=== PATIENT | female | born 1995 | race Caucasian/White ===

== ENCOUNTER 2018-10-02 19:51 | Emergency (ER) | payer OTHER ==
[~2018-10-02] VITALS: Wt 74.6 kg
[2018-10-02] MEDS ORDERED: ACETAMINOPHEN 325 MG TAB PO STA (21:04)
[2018-10-02] MEDS ORDERED: CEPH-443 PO (23:06)
[2018-10-02] MEDS ORDERED: ACET325T33 PO (23:06)
[2018-10-02 23:17] VITALS: BP 141/75; PULSE 94; RESP 20
--- NOTE | 2018-10-03 03:55 | ERD ---
ER Documentation Chief Complaint Chief Complaint low ab pain x 2 days; (+) home test but w/ IUD HPI 23-year-old female with no significant past medical history presents to the emergency department complaining of suprapubic cramping for the past 2 days. Her last menstrual cycle was 08/09/2018. She is G3, . Symptoms are constant, rated 6/10 in severity. She had multiple positive at home tests at home. She denies any other symptoms currently. ROS All systems reviewed and are negative except as per history of present illness. Medications Home Meds Active Scripts Acetaminophen* (Tylenol*) 325 Mg Tablet, 2 TAB PO Q6 PRN for PAIN AND OR ELEVATED TEMP, #20 TAB Prov:CORA RICHMOND PA-C 10/02/18 Cephalexin* (Keflex*) 500 Mg Capsule, 500 MG PO TID for 7 Days, CAP Prov:CORA RICHMOND PA-C 10/02/18 Allergies Allergies: Coded Allergies: No Known Drug Allergies (Verified Allergy, Unknown, 06/16/14) PMhx/Soc Medical and Surgical Hx: pt denies Medical Hx History of Surgery: No Anesthesia Reaction: No Hx Neurological Disorder: No Hx Respiratory Disorders: No Hx Cardiac Disorders: No Hx Psychiatric Problems: No Hx Miscellaneous Medical Probl: No Hx Alcohol Use: No Hx Substance Use: No Hx Tobacco Use: No Smoking Status: Never smoker FmHx Family History: No diabetes Physical Exam Vitals Vital Signs Date Temp Pulse Resp B/P (MAP) Pulse Ox O2 O2 Flow FiO2 Time Delivery Rate 10/02/18 98.1 94 20 141/75 100 Room Air 23:17 (97) 10/02/18 98.8 107 18 147/85 98 20:06 (105) Physical Exam Const: No acute distress Head: Atraumatic Eyes: Normal Conjunctiva ENT: Normal External Ears, Nose and Mouth. Neck: Full range of motion. No meningismus. Resp: Clear to auscultation bilaterally Cardio: Regular rate and rhythm, no murmurs Abd: Soft, non tender, non distended. Normal bowel sounds. No rebound tenderness or guarding. No McBurney's point tenderness. Mild bilateral pelvic tenderness to palpation. Skin: No petechiae or rashes Back: No midline or flank tenderness Ext: No cyanosis, or edema Neur: Awake and alert Psych: Normal Mood and Affect Result Diagram: 10/02/18210910/02/182109 Results 24 hrs Laboratory Tests Test 10/02/18 21:10 10/02/18 21:11 10/02/18 21:15 10/02/18 21:16 White Blood 9.8 10^3/ul Count Red Blood Count 4.78 10^6/ul Hemoglobin 13.5 g/dl Hematocrit 39.8 % Mean Corpuscular 83.3 fl Volume Mean Corpuscular 28.2 pg Hemoglobin Mean Corpuscular 33.9 g/dl Hemoglobin Johana nt Red Cell 13.3 % Distribution Width Platelet Count 294 10^3/UL Mean Platelet 10.8 fl Volume Immature 0.300 % Granulocytes % Neutrophils % 73.5 % Lymphocytes % 16.7 % Monocytes % 7.5 % Eosinophils % 1.5 % Basophils % 0.5 % Nucleated Red 0.0 /100WBC Blood Cells % Immature 0.030 10^3/ul Granulocytes # Neutrophils # 7.2 10^3/ul Lymphocytes # 1.6 10^3/ul Monocytes # 0.7 10^3/ul Eosinophils # 0.2 10^3/ul Basophils # 0.1 10^3/ul Nucleated Red 0.0 10^3/ul Blood Cells # Sodium Level 139 mmol/L Potassium Level 3.7 mmol/L Chloride Level 105 mmol/L Carbon Dioxide 22 mmol/L Level Anion Gap 12 Blood Urea 14 mg/dl Nitrogen Creatinine 0.52 mg/dl Est Glomerular > 60 mL/min Filtrat Rate mL/min Glucose Level 109 mg/dl Calcium Level 9.7 mg/dl Total Bilirubin 0.2 mg/dl Direct Bilirubin 0.00 mg/dl Indirect 0.2 mg/dl Bilirubin Aspartate Amino 36 IU/L Transf (AST/SGOT ) Alanine 38 IU/L Aminotransferase (ALT/SGPT) Alkaline 99 IU/L Phosphatase Total Protein 8.7 g/dl Albumin 4.7 g/dl Globulin 4.00 g/dl Albumin/Globulin 1.17 Ratio Beta HCG, 80018.0 mIU/ml Quantitative Urine Color YELLOW Urine Clarity CLOUDY Urine pH 5.0 Urine Specific 1.034 [place] Urine Ketones NEGATIVE mg/dL Urine Nitrite NEGATIVE mg/dL Urine Bilirubin NEGATIVE mg/dL Urine NEGATIVE mg/dL Urobilinogen Urine Leukocyte 2+ Anton/ul Esterase Urine 5 /HPF Microscopic RBC Urine 15 /HPF Microscopic WBC Urine Squamous MODERATE /HPF Epithelial Cells Urine Bacteria FEW /HPF Urine Mucus FEW /HPF Urine Hemoglobin NEGATIVE mg/dL Urine Glucose NEGATIVE mg/dL Urine Total NEGATIVE mg/dl Protein POC Beta HCG, POSITIVE Qualitative Bedside Urine pH 5.5 (LAB) Bedside Urine 1+ Protein (LAB) Bedside Urine Negative Glucose (UA) Bedside Urine Trace Ketones (LAB) Bedside Urine Negative Blood Bedside Urine Negative Nitrite (LAB) Bedside Urine Trace Leukocyte Estera se (L Current Medications Medications Dose Sig/Mary Start Time Status Last (Trade) Ordered Route PRN Stop Time Admin Dose Reason Admin 650 mg ONCE STAT 10/02/18 DC 10/02/18 Acetaminophen PO 21:04 21:18 (Tylenol 10/02/18 21:06 Tab) [place] [address] Radiology Main Line: [phone] DIAGNOSTIC IMAGING REPORT Patient: ANDREW LUTZ : 1995 Age: 23 Sex: F MR #: [id number] DOS: 10/02/182103 Ordering MD: CORA RICHMOND PA-C Location: [facility] Room/Bed: PROCEDURE: OB Ultrasound. CLINICAL INDICATION: Positive test. Vaginal bleeding. The patient states she has an IUD. TECHNIQUE: Ultrasound of the pelvis was performed with transabdominal and transvaginal sonography in the axial and sagittal planes. COMPARISON: No prior study is available for comparison. FINDINGS: There is a single intrauterine gestational sac. Yolk sac is present. pole is visualized. There is heart motion. heart rate is 112 beats per minute. Peavine-rump length is 0.49 cm. Mean sac diameter is 1.59 cm. There is a subchorionic hemorrhage measuring up to 3.3 cm. Menstrual age by ultrasound dates is 6 weeks 2 days. This indicates an expected date of delivery of 05/26/2019. The right ovary appears normal measuring 3.6 x 1.5 x 1.4 cm. The left ovary appears normal measuring 3.1 x 1.8 x 2.1 cm. Color Doppler and pulsed Doppler sonography demonstrate normal flow to the ovaries. There is no other pelvic mass or free fluid. IMPRESSION: 1. Single live intrauterine gestation of 6 weeks 2 days menstrual age by ultrasound dates. 2. Expected date of delivery is 05/26/2019. 3. IUD not visualized. 4. Subchorionic hemorrhage measuring 3.3 cm. 5. Otherwise unremarkable study.. RPTAT: QQ .Burak Jensen MD, MD Date Time Electronically viewed and signed by .Burak Jensen MD, on 10/02/2018 22:18 .R/ CC: CORA RICHMOND PA-C [id number] Procedures/MDM 23-year-old female presents to the emergency department complaining of pelvic pain during . Urinalysis showed evidence of urinary tract infection without evidence of pyelonephritis, sepsis, acute surgical abdomen, tubo-ovarian abscess, ectopic , or other emergencies. Ultrasound revealed live intrauterine with positive heart tones. Beta hCG was consistent with term of . The patient was stable and appropriate for discharge and further outpatient management with a prescription for Keflex and Tylenol. Patient was advised to have close follow-up with [facility] physician and return to the department immediately for any new or worsening or concerning symptoms. She understands and agrees with the plan. Departure Diagnosis: Primary Impression: Pelvic pain affecting Additional Impression: UTI (urinary tract infection) Condition: Fair Patient Instructions: Understanding Urinary Tract Infections (UTIs) Referrals: [facility] [address] [facility] [address] [place], [place] [id number] [address]ABUSLEME MAN [address] [place] [address] [address] [place] [address] [place] [id number] GERARD FERNANDEZ [address] [facility], [address] [address] [address] [address] [facility], [place] [id number] [facility] [address] [place], [place] [address] [address] [facility] [address] [address] NOR[address] [facility] [address] [address] ALVAREZ, CHRISTINE [address] [facility]. [address], [facility] [address] [address] OJEDA, [facility] [address] [place], [place] [phone] Additional Instructions: SPECIALIST: YOU HAVE A MEDICAL CONDITION WHICH REQUIRES YOU TO SEE A SPE CIALIST WITHIN THE NEXT 1-2 DAYS. PLEASE FOLLOW UP WITH YOUR PRIMARY PHYSICIAN FOR REFFERAL.IF YOU DO NOT HAVE A PRIMARY CARE PHYSICIAN AND/OR YOU CAN NOT AFFORD TO SEE A PHYSICIAN THE FOLLOWING RESOURCES HAVE BEEN SUPPLIED TO YOU. IT IS YOUR RESPONSIBILITY TO BE SEEN BY THE SPECIALIST: CORA LEDESMA PA-C Oct 03, 2018 03:55
== END 2018-10-02 23:19 | disposition home or self-care (01) ==
LOC: FTE 19:51
DX: O26.891 Other specified pregnancy related conditions, first trimester (principal); R10.2 Pelvic and perineal pain; O23.41 Unspecified infection of urinary tract in pregnancy, first trimester; Z3A.01 Less than 8 weeks gestation of pregnancy
CPT/HCPCS: 36415; 76801; 76817; 80053; 81001; 81025; 84702; 85025; 86900; 86901; Z7502; Z7610; 81003

== ENCOUNTER 2018-10-05 23:36 | Emergency (ER) | payer OTHER ==
[~2018-10-05] VITALS: Ht 149.9 cm; Wt 74.7 kg
[~2018-10-05 23:36] MED LIST: ACET325T33 PO; CEPH-443 PO
[2018-10-05 23:40] VITALS: Ht 149.9 cm; Wt 74.7 kg
[2018-10-06] MEDS ORDERED: CEPH-443 PO (02:11)
[2018-10-06] MEDS ORDERED: ACET-141 PO (02:11)
[2018-10-06] MEDS ORDERED: ACETAMINOPHEN 500 MG TAB PO STA (02:14)
[2018-10-06] MEDS ORDERED: CEPHALEXIN 500 MG CAP PO ONE (02:30)
[2018-10-06 02:38] VITALS: BP 133/76; PULSE 72; RESP 16
--- NOTE | 2018-10-06 17:16 | ERD ---
ER Documentation Chief Complaint Chief Complaint brownish vaginal discharge since 1999. states 6 weeks , c/o abd alba HPI History of Present Illness: 23-year-old female who denies a past medical history coming in today due to complaints of brown, clumpy vaginal discharge that started at 8 PM. Patient reports being approximately 6 weeks . Patient reports her abdominal pain rating 6/10. Patient denies bleeding consistent with a menstrual cycle or clots. Patient denies dysuria. At home pharmacological/nonpharmacological treatment for symptoms: Denies Denies social concerns; Denies recent foreign travel ROS All systems reviewed and are negative except as per history of present illness. Medications Home Meds Active Scripts Acetaminophen* (Acetaminophen*) 500 MG Extra Strength Tablet, 1000 MG PO Q6H PRN for PAIN AND OR ELEVATED TEMP, #30 TAB Prov:GIUSEPPE RESTREPO NP 10/06/18 Cephalexin* (Keflex*) 500 Mg Capsule, 500 MG PO TID for URINE INFECTION for 7 Days, CAP Prov:GIUSEPPE RESTREPO V TRANSFER CAR OPERATOR 10/06/18 Acetaminophen* (Tylenol*) 325 Mg Tablet, 2 TAB PO Q6 PRN for PAIN AND OR ELEVATED TEMP, #20 TAB Prov:CORA RICHMOND PA-C 10/02/18 Cephalexin* (Keflex*) 500 Mg Capsule, 500 MG PO TID for 7 Days, CAP Prov:CORA RICHMOND PA-C 10/02/18 Allergies Allergies: Coded Allergies: No Known Drug Allergies (Verified Allergy, Unknown, 06/16/14) PMhx/Soc Medical and Surgical Hx: pt denies Medical Hx, pt denies Surgical Hx History of Surgery: No Anesthesia Reaction: No Hx Neurological Disorder: No Hx Respiratory Disorders: No Hx Cardiac Disorders: No Hx Psychiatric Problems: No Hx Miscellaneous Medical Probl: No Hx Alcohol Use: No Hx Substance Use: No Hx Tobacco Use: No Smoking Status: Never smoker FmHx Family History: No diabetes, No coronary disease Physical Exam Vitals Vital Signs Date Temp Pulse Resp B/P (MAP) Pulse Ox O2 O2 Flow FiO2 Time Delivery Rate 10/06/18 98.3 72 16 133/76 98 Room Air 02:38 (95) 10/05/18 99.0 84 18 138/76 98 23:40 (96) Physical Exam Const: No acute distress, afebrile Head: Atraumatic Eyes: Normal Conjunctiva ENT: Normal External Ears, Nose and Mouth. Neck: Full range of motion. No meningismus. Resp: Clear to auscultation bilaterally Cardio: Regular rate and rhythm, no murmurs Abd: Soft, lower quadrant tenderness, non distended. No guarding, no masses, no rigidity Skin: No petechiae or rashes Back: No midline or flank tenderness Ext: No cyanosis, or edema Neur: Awake and alert x3, speaking in clear sentences, no focal deficits or facial asymmetry Psych: Normal Mood and Affect Result Diagram: 10/05/18 6188 Results 24 hrs Laboratory Tests Test 10/05/18 23:59 White Blood Count 9.0 10^3/ul Red Blood Count 4.30 10^6/ul Hemoglobin 12.4 g/dl Hematocrit 36.0 % Mean Corpuscular Volume 83.7 fl Mean Corpuscular Hemoglobin 28.8 pg Mean Corpuscular Hemoglobin Concent 34.4 g/dl Red Cell Distribution Width 13.2 % Platelet Count 269 10^3/UL Mean Platelet Volume 11.0 fl Immature Granulocytes % 0.200 % Neutrophils % 68.1 % Lymphocytes % 22.3 % Monocytes % 7.0 % Eosinophils % 2.0 % Basophils % 0.4 % Nucleated Red Blood Cells % 0.0 /100WBC Immature Granulocytes # 0.020 10^3/ul Neutrophils # 6.1 10^3/ul Lymphocytes # 2.0 10^3/ul Monocytes # 0.6 10^3/ul Eosinophils # 0.2 10^3/ul Basophils # 0.0 10^3/ul Nucleated Red Blood Cells # 0.0 10^3/ul Urine Color YELLOW Urine Clarity CLOUDY Urine pH 5.0 Urine Specific [place] 1.031 Urine Ketones TRACE mg/dL Urine Nitrite NEGATIVE mg/dL Urine Bilirubin NEGATIVE mg/dL Urine Urobilinogen 1+ mg/dL Urine Leukocyte Esterase 1+ Anton/ul Urine Microscopic RBC 17 /HPF Urine Microscopic WBC 20 /HPF Urine Squamous Epithelial Cells FEW /HPF Urine Bacteria FEW /HPF Urine Mucus MANY /HPF Urine Hemoglobin 3+ mg/dL Urine Glucose NEGATIVE mg/dL Urine Total Protein 1+ mg/dl Beta HCG, Quantitative 85497.0 mIU/ml Current Medications Medications Dose Sig/Mary Start Time Status Last (Trade) Ordered Route PRN Stop Time Admin Dose Reason Admin Cephalexin 500 mg ONCE ONCE 10/06/18 DC 10/06/18 (Keflex) PO 02:30 02:34 10/06/18 02:31 1,000 mg ONCE STAT 10/06/18 DC 10/06/18 Acetaminophen PO 02:14 02:34 (Tylenol 10/06/18 02:15 Tab) Procedures/MDM ED COURSE: ED course includes a thorough examination and history. The patient was stable throughout ED course. I kept the patient and/or family informed of laboratory and diagnostic imaging results throughout the ED course. LABS: CBC: no e/o of systemic infection [place] [address] Urinalysis positive for trace ketones, 1+ leukocyte Estrace, 17 RBCs, 20 WBCs, few bacteria, 3+ hemoglobin, 1.031 specific gravity MEDICATIONS GIVEN IN ER: Acetaminophen, cephalexin patient tolerated medication well with no adverse reactions. DIAGNOSTIC IMAGING: Read by radiologist. IMPRESSION: 1. Single live intrauterine with an estimated gestational age of 6 weeks 4 days, the estimated date of delivery 05/28/2019. 2. Previously seen subchorionic hemorrhage has decreased from 3.3 cm to approximately 2.4 cm but there has been development of a second smaller subchorionic hemorrhage in the fundal region measuring 1.1 cm. 3. Corpus luteum cyst of the left ovary again incidentally noted. Physician Sandra Date Time Electronically viewed and signed by Physician Sandra on 10/06/2018 01:03 PROCEDURES: None. MEDICAL DECISION MAKING: Low suspicion for life-threatening medical emergency. Low suspicion for acute abdominal emergency. Low suspicion for infectious process that requires IV/IM antibiotics. Otherwise healthy patient presenting with constellation of symptoms likely representing vaginal bleeding during , urinary tract infection, threatened miscarriage, subchorionic hemorrhages as characterized by history, physical exam findings, lab findings, imaging findings. Patient reassessment @ 0208: Results discussed. Patient hemodynamically stable. No respiratory distress, otherwise relatively well appearing and nontoxic. Disposition given. Patient educated on diagnoses, prescriptions, follow-up care, return precautions. Strict return precautions given for worsening condition; questions answered discharge. Patient verbalizes understanding of discharge instructions. PRESCRIPTIONS FOR HOME: Acetaminophen, cephalexin DISPOSITION: DISCHARGE At this time, patient is stable for discharge and outpatient management. I have instructed the patient to follow-up with his/her primary care physician in 1-2 days. I have discussed with the patient the possibility of needing to see a specialist for further workup and imaging studies if symptoms persist. I have instructed the patient to promptly return to the ER for any new or worsening symptoms including increased pain, fever, nausea, vomiting, weakness or LOC. The patient and/or family expressed understanding of and agreement with this plan. All questions were answered. Home care instructions were provided. DISCLAIMER: Inadvertent spelling and grammatical errors are likely due to EHR/dictation software use and do not reflect on the overall quality of patient care. Also, please note that the electronic time recorded on this note does not necessarily reflect the actual time of the patient encounter. Departure Diagnosis: Primary Impression: Urinary tract infection Additional Impressions: Subchorionic hematoma in first trimester Vaginal bleeding in patient at less than 20 weeks ges... Miscarriage, threatened, early Condition: Stable Patient Instructions: Understanding Urinary Tract Infections (UTIs), Bleeding During Early , Possible Miscarriage (Threatened ) Referrals: [facility] YOU HAVE RECEIVED A MEDICAL SCREENING EXAM AND THE RESULTS INDICATE THAT YOU DO NOT HAVE A CONDITION THAT REQUIRES URGENT TREATMENT IN THE EMERGENCY DEPARTMENT. FURTHER EVALUATION AND TREATMENT OF YOUR CONDITION CAN WAIT UNTIL YOU ARE SEEN IN YOUR DOCTORS OFFICE WITHIN THE NEXT 1-2 DAYS. IT IS YOUR RESPONSIBILITY TO MAKE AN APPOINTMENT FOR FOLOW-UP CARE. IF YOU HAVE A PRIMARY DOCTOR --you should call your primary doctor and schedule an appointment IF YOU DO NOT HAVE A PRIMARY DOCTOR YOU CAN CALL OUR PHYSICIAN REFERRAL HOTLINE AT IF YOU CAN NOT AFFORD TO SEE A PHYSICIAN YOU CAN CHOSE FROM THE FOLLOWING [facility] [address] [facility] [address] [facility] [address] [facility] [address] [facility] [address] [facility]. [facility]. [address] [facility]. [facility] YOU HAVE RECEIVED A MEDICAL SCREENING EXAM AND THE RESULTS INDICATE THAT YOU DO NOT HAVE A CONDITION THAT REQUIRES URGENT TREATMENT IN THE EMERGENCY DEPARTMENT. FURTHER EVALUATION AND TREATMENT OF YOUR CONDITION CAN WAIT UNTIL YOU ARE SEEN IN YOUR DOCTORS OFFICE WITHIN THE NEXT 1-2 DAYS. IT IS YOUR RESPONSIBILITY TO MAKE AN APPOINTMENT FOR FOLOW-UP CARE. IF YOU HAVE A PRIMARY DOCTOR --you should call your primary doctor and schedule and appointment IF YOU DO NOT HAVE A PRIMARY DOCTOR YOU CAN CALL OUR PHYSICIAN REFERRAL HOTLINE AT . IF YOU CAN NOT AFFORD TO SEE A PHYSICIAN YOU CAN CHOSE FROM THE FOLLOWING [facility] INSTITUTIONS: [facility] [address] [place] [address] [facility] [address] [place] [address] [facility] [address] [place] [address] BAND [employer] [place] [address] [facility] [address] [place] [address] OFFICE FAX , [facility] [address] [place], [place] [id number] [facility] [address] [place] [address] GERARD FERNANDEZ [address] [facility], [address] [address] [address] [address] [place] [address] [facility] [address] [place] [address] [facility] [address] - NORMA LEONE [address], [facility] [address] [address] ALVAREZ, CHRISTINE [address] [facility]. [address], [place] [address] [address] O[address]EDA, [facility] [address] [place] [address] Additional Instructions: Thank you very much for allowing us to participate in your care. Your health and safety is our top priority at [facility]. It is important to read all discharge instructions and education provided in your discharge packet. *Call your BAND RIPSAW OPERATOR on Sunday for follow-up appointment for next week for further evaluation and testing including possible blood work and/or ultrasound* Call your primary care doctor TOMORROW for an appointment during the next 2-4 days and bring all the information and medications prescribed. Have prescriptions filled and follow precisely the directions on the label. -Cephalexin is an antibiotic; take this medication every day as listed on your prescription. You must complete the entire course of treatment that is listed on your prescription this is very important because it takes a certain number of days to kill the bacteria that is causing the infection. --Acetaminophen as a medication for pain and/or fever. Take this medication as needed for mild to moderate pain. This medication will not cause drowsiness. This pain medication is safe during . If the symptoms get worse and your provider is unavailable, return to the Emergency Department immediately. *Signs of hemorrhage include soaking 1 pad (KOTEX) per hour; this is a life-threatening medical emergency and you need imme diate evaluation.* GIUSEPPE RESTREPO NP Oct 06, 2018 17:16
== END 2018-10-06 02:40 | disposition home or self-care (01) ==
LOC: FTE 23:36
DX: O23.41 Unspecified infection of urinary tract in pregnancy, first trimester (principal); O41.8X10 Other specified disorders of amniotic fluid and membranes, first trimester, not applicable or unspecified; O46.8X1 Other antepartum hemorrhage, first trimester; O03.9 Complete or unspecified spontaneous abortion without complication
CPT/HCPCS: 76801; 76817; 81001; 84702; 85025; 86900; 86901; Z7610; 36415